=== PATIENT | female | born 1985 | race Caucasian/White ===

== ENCOUNTER 2021-11-15 21:31 | Emergency (ER) | payer MEDICAID ==
[~2021-11-15] VITALS: Ht 170.2 cm; Wt 72.6 kg
[2021-11-15 21:35] VITALS: BP 110/70
--- NOTE | 2021-11-15 22:29 | NUR ---
PT TAKEN TO CHAIR
--- NOTE | 2021-11-15 22:30 | NUR ---
Dr. Hollingsworth examining patient.
--- NOTE | 2021-11-16 01:07 | NUR ---
PT AMBULATES TO BATHROOM WITHOUT ASSISTANCE
--- NOTE | 2021-11-16 01:45 | NUR ---
Dr. Hollingsworth examining patient.
[2021-11-16 01:50] VITALS: BP 118/79
--- NOTE | 2021-11-16 01:50 | NUR ---
Patient discharged with v/s stable. Written and verbal after care instructions given and explained. Patient verbalized understanding. Ambulatory with steady gait. All questions addressed prior to discharge. Advised to follow up with PMD.
== END 2021-11-16 01:50 | disposition home or self-care (01) ==
LOC: MED 21:31 → EDBD 21:31 → MED 11-16 01:50
DX: F10.129 Alcohol abuse with intoxication, unspecified (principal); Y90.9 Presence of alcohol in blood, level not specified
CPT/HCPCS: 99283